=== PATIENT | male | born 1985 ===

== ENCOUNTER 2019-09-28 13:30 | Outpatient (CLI) | payer OTHER | END 2019-09-28 13:31 | disposition short-term general hospital (02) | LOC: EMS 13:30 | PROVIDERS: ATTEND Surgery | DX: N50.812 Left testicular pain (principal); R10.32 Left lower quadrant pain; X50.0XXA Overexertion from strenuous movement or load, initial encounter; Y92.814 Boat as the place of occurrence of the external cause; Y99.0 Civilian activity done for income or pay | CPT/HCPCS: A0425; A0429 ==